=== PATIENT | male | born 1975 | race Caucasian/White ===

== ENCOUNTER 2019-10-07 06:57 | Emergency (ER) | payer OTHER ==
[~2019-10-07] VITALS: Ht 182.9 cm; Wt 106.6 kg
[2019-10-07] MEDS ORDERED: GAS RELIEF125 MG PO (07:21)
== END 2019-10-07 09:46 | disposition home or self-care (01) ==
LOC: ED 06:57
DX: N13.2 Hydronephrosis with renal and ureteral calculous obstruction (principal)
CPT/HCPCS: 74176; 80053; 81001; 85025; 96374; 96375; 96376; 99284-25; J1170; J1885